=== PATIENT | female | born 1980 | race Caucasian/White ===

== ENCOUNTER 2017-06-07 13:46 | Emergency (ER) | payer MEDICAID, SELFPAY ==
[2017-06-07 14:05] VITALS: BP 152/94; PULSE 112; RESP 20; TEMP 36.6; O2SAT 100
--- NOTE | 2017-06-07 14:33 | HMH.EDUTC ---
[facility] [place] Impression: Viral gastroenteritis Disposition: Home, Self-Care Condition on Discharge: Good Instructions: Viral Gastroenteritis, DI for Viral Gastroenteritis -- Adult, Loperamide, Diarrhea Additional Instructions: ? Drink extra fluids with and between meals. If you have difficulty drinking, try very small amounts of water or suck on ice chips. ? Avoid fruit juices, as these do not replace minerals and can actually increase diarrhea. ? Children and adults can use sports drinks to replenish electrolytes. Younger children and infants should use products formulated for children, like oral rehydration solutions. ? Eat food in small amounts and let your stomach recover. ? Get lots of rest. You may feel tired or weak. ? Check with your doctor before taking medications or giving them to children. Never give aspirin to children or teenagers with a viral illness. This can cause Loyd syndrome, a potentially life-threatening condition. Over the counter Immodium for diarrhea If you begin to have any life threatening symptoms or severe abdominal pain straight to ER Follow up with family doctor in 12-48 hours if no improvement or worsening of symptoms Return if needed Prescriptions: Ondansetron [Zofran 4mg ODT] 4 mg PO Q8H #20 tab.rapdis Time of Disposition: 15:12 Medical Decision Making - Medical Records Medical records reviewed: Yes: I reviewed the patient's medical records. Vital Signs: 06/07/17 14:05 Temperature 97.8 F Temperature Source Temporal Artery Scan Pulse Rate [Right Brachial] 112 H Respiratory Rate 20 Blood Pressure [Right Arm] 152/94 Blood Pressure Mean [Right Arm] 113 Blood Pressure Source [Right Arm] Automatic Cuff Blood Pressure Position [Right Arm] Sitting 02 Sat by Pulse Oximetry 100 Oxygen Delivery Method Room Air - Lab Data Lab results reviewed: Yes: I reviewed the patient's lab results. Lab Results 06/07/17 14:15: Influenza Type A Ag Negative, Influenza Type B Ag Negative, Strep Scn Rapid Clinic Negative Orders (Tests/Meds): ED MEDICATIONS Discontinued Medications Generic Name Dose Route Start Last Admin Trade Name Freq PRN Reason Stop Dose Admin Dicyclomine HCl 10 mg 06/07/17 14:38 06/07/17 14:45 Bentyl 10mg Capsule PO 06/07/17 14:39 10 mg ONCE ONE Administration Ondansetron HCl 4 mg 06/07/17 14:38 06/07/17 14:45 Zofran 4mg Odt SL 06/07/17 14:39 4 mg ONCE ONE Administration ORDERS Category Date Time Status Strep Screen Confirmation Stat Micro 06/07/17 14:15 Received - Christiano Inquiry Pt receiving controlled substance: No Christiano was queried for this patient: No - Reevaluation(s) Time: 15:08 Reevaluation #1: Patient state that Bentyl helped with cramping and feels much better [facility] [place] - General Stated complaint: Stomach pain; diarhea; bloating Mode of Arrival: Family Vehicle Source of Information: Patient Limitations: No Limitations Description of Symptoms (Recalled from Triage Doc. by RN): C/O N/V/D SINCE THIS AM WITH EPIGASTRIC PAIN HEENT Symptoms (Recalled from RN notes): No Resp Symptoms (Recalled from RN notes): No Skin Symptoms (Recalled from RN notes): No MS Symptoms (Recalled from RN notes): No Functional Status (Recalled from RN notes): N/A - History of Present Illness Provider Complaint: Patient state that she began having nausea, vomiting and diarrhea yesterday States that right before she has an eppisode of loose stool she has some stomach cramping. State that this morning she woke up and still having diarrhea, vomiting and stomach cramps so she came in to get checked out - Related Data Previous Rx's Medication Instructions Recorded Ondansetron [Zofran 4mg ODT] 4 mg PO Q8H #20 tab.rapdis 06/07/17 Allergies Allergy/AdvReac Type Severity Reaction Status Date / Time NKDA Allergy Unknown Uncoded 03/18/17 15:31 - Worker's Comp Is this a Worker's Comp case?: No [facility]
--- NOTE | 2017-06-07 14:38 | ED_ITS ---
[facility] [place]ression: Viral gastroenteritis Disposition: Home, Self-Care Condition on Discharge: Good Instructions: Viral Gastroenteritis, DI for Viral Gastroenteritis -- Adult, Loperamide, Diarrhea Additional Instructions: ? Drink extra fluids with and between meals. If you have difficulty drinking, try very small amounts of water or suck on ice chips. ? Avoid fruit juices, as these do not replace minerals and can actually increase diarrhea. ? Children and adults can use sports drinks to replenish electrolytes. Younger children and infants should use products formulated for children, like oral rehydration solutions. ? Eat food in small amounts and let your stomach recover. ? Get lots of rest. You may feel tired or weak. ? Check with your doctor before taking medications or giving them to children. Never give aspirin to children or teenagers with a viral illness. This can cause Darian?s syndrome, a potentially life-threatening condition. Over the counter Immodium for diarrhea If you begin to have any life threatening symptoms or severe abdominal pain straight to ER Follow up with family doctor in 12-48 hours if no improvement or worsening of symptoms Return if needed Prescriptions: Ondansetron [Zofran 4mg ODT] 4 mg PO Q8H #20 tab.rapdis Time of Disposition: 15:12 Medical Decision Making - Medical Records Medical records reviewed: Yes: I reviewed the patient's medical records. Vital Signs: 06/07/17 14:05 Temperature 97.8 F Temperature Source Temporal Artery Scan Pulse Rate [Right Brachial] 112 H Respiratory Rate 20 Blood Pressure [Right Arm] 152/94 Blood Pressure Mean [Right Arm] 113 Blood Pressure Source [Right Arm] Automatic Cuff Blood Pressure Position [Right Arm] Sitting 02 Sat by Pulse Oximetry 100 Oxygen Delivery Method Room Air - Lab Data Lab results reviewed: Yes: I reviewed the patient's lab results. Lab Results 06/07/17 14:15: Influenza Type A Ag Negative, Influenza Type B Ag Negative, Strep Scn Rapid Clinic Negative Orders (Tests/Meds): ED MEDICATIONS Discontinued Medications Generic Name Dose Route Start Last Admin Trade Name Freq PRN Reason Stop Dose Admin Dicyclomine HCl 10 mg 06/07/17 14:38 06/07/17 14:45 Bentyl 10mg Capsule PO 06/07/17 14:39 10 mg ONCE ONE Administration Ondansetron HCl 4 mg 06/07/17 14:38 06/07/17 14:45 Zofran 4mg Odt SL 06/07/17 14:39 4 mg ONCE ONE Administration ORDERS Category Date Time Status Strep Screen Confirmation Stat Micro 06/07/17 14:15 Received - Christiano Inquiry Pt receiving controlled substance: No Christiano was queried for this patient: No - Reevaluation(s) Time: 15:08 Reevaluation #1: Patient state that Bentyl helped with cramping and feels much better [facility] [place] - General Stated complaint: Stomach pain; diarhea; bloating Mode of Arrival: Family Vehicle Source of Information: Patient Limitations: No Limitations Description of Symptoms (Recalled from Triage Doc. by RN): C/O N/V/D SINCE THIS AM WITH EPIGASTRIC PAIN HEENT Symptoms (Recalled from RN notes): No Resp Symptoms (Recalled from RN notes): No Skin Symptoms (Recalled from RN notes): No MS Symptoms (Recalled from RN notes): No Functional Status (Recalled from RN notes): N/A - History of Present Illness
[2017-06-07 14:52] LABS: UTC Influenza A Antigen Negative (Negative); UTC Influenza B Antigen Negative (Negative); UTC Strep Screen (Rapid) Negative (Negative)
[2017-06-07 15:19] VITALS: BP 148/88; PULSE 100; RESP 20; TEMP 36.6; O2SAT 100
== END 2017-06-07 15:20 | disposition home or self-care (01) ==
PROVIDERS: Emergency Provider Nurse Practitioner; Family Provider Family Medicine
DX: A08.4 Viral intestinal infection, unspecified (principal); R10.13 Epigastric pain
CPT/HCPCS: 87804; 87880; 99202

== ENCOUNTER → 2018-06-23 11:39 | Outpatient (CLI) | payer MEDICAID, SELFPAY ==
[2018-06-23 12:29] LABS: Basophils % 0.7 % (0.1-2.0); Eosinophils # 0.1 K/mm3 (0.0-0.4); Eosinophils % 1.2 % (0.1-12.0); Hematocrit 30.8 % (37.0-47.0); Hemoglobin 8.8 g/dL (12.2-16.2); Lymphocytes # 1.1 K/mm3 (0.7-4.5); Lymphocytes % 22.7 % (10-50); Mean Corpuscular HGB Conc 28.5 g/dL (31.8-35.4); Mean Corpuscular Volume 66.9 fl (81-99); Mean Platelet Volume 7.1 fl (7.4-10.4); Monocytes # 0.6 K/mm3 (0.1-1.0); Neutrophils # 3.2 K/mm3 (1.8-7.8); Neutrophils % 63.4 % (37.0-80.0); Platelet Count 260 K/mm3 (142-424); Red Blood Count 4.61 M/mm3 (4.20-5.40); Red Cell Distribution Width 17.1 % (11.5-17.5)
[2018-06-24 08:45] LABS: HIV Screen 4th Generation wRfx Non Reactive (Non Reactive); Rubella Antibodies, IgG 7.43 index (Immune >0.99)
[2018-06-24 09:22] LABS: Rapid Plasma Reagin Ab Titer Non Reactive (NonRea<1:1)
[2018-06-24 10:05] LABS: Hepatitis B Surface Antigen Negative (Negative); Hepatitis C Antibody 0.1 s/co ratio (0.0-0.9)
== END ==
PROVIDERS: Visit Provider Nurse Practitioner Obstetrics & Gynecology
DX: Z34.90 Encounter for supervision of normal pregnancy, unspecified, unspecified trimester (principal)
CPT/HCPCS: 36415; 85025; 86592; 86703; 86762; 86850; 87340; 87380; G0432

== ENCOUNTER 2018-06-26 17:59 | Observation (INO) ==
--- NOTE | 2018-06-26 18:53 | Emergency Department Note ---
ED Disposition Clinical Impression: Spontaneous , Vaginal bleeding Disposition: Admitted as Observation Condition on Discharge: Fair Referrals: Provider,Referral, [Primary Care Provider] - Time of Disposition: 20:00 - Critical Care Critical Care Time: No Attestation: On 06/26/18, the high probability of a clinically significant, sudden or life threatening deterioration of the following system(s) required my full and direct attention, intervention and personal management. The time I documented below is in addition to time spent performing reported procedures but includes the following listed in this critical care notation. Medical Decision Making - Medical Records Medical records reviewed: Yes: I reviewed the patient's medical records. - Christiano Inquiry Pt receiving controlled substance: No Christiano was queried for this patient: No Vital Signs: 06/26/18 18:05 Temperature 98.2 F Temperature Source Oral Pulse Rate [Right] 95 H Respiratory Rate 20 Blood Pressure [Right Arm] 130/92 H Blood Pressure Mean [Right Arm] 104 Blood Pressure Source [Right Arm] Automatic Cuff Blood Pressure Position [Right Arm] Sitting 02 Sat by Pulse Oximetry 99 Oxygen Delivery Method Room Air - Lab Data Lab results reviewed: Yes: I reviewed the patient's lab results. Lab Results 06/26/18 17:50: HCG, Quant 7073 H 06/26/18 17:50: WBC 6.0, RBC 4.58, Hgb 8.6 L, Hct 30.5 L, MCV 66.7 L, MCH 18.7 L , MCHC 28.0 L, RDW 17.1, Plt Count 260, MPV 7.8, Neut % (Auto) 71.6, Lymph % (Auto) 18.4, [place] % (Auto) 8.6, Eos % (Auto) 1.0, Baso % (Auto) 0.4, Neut # (Auto) 4.3, Lymph # (Auto) 1.1, [place] # (Auto) 0.5, Eos # (Auto) 0.1, Baso # (Auto) 0.0 Result diagrams: 06/26/18 17:50 Orders (Tests/Meds): ORDERS Category Date Time Status Type and Screen Stat BBK 06/26/18 19:40 Ordered US OB <= 14 weeks fetus Stat Exams 06/26/18 18:37 Ordered - Physician Consults Physician Consulted: mik functional mental disability teacher anna reza Time: 19:58 Comment/Response: admit obs General Adult HPI - General Chief complaint: Vaginal Bleeding Stated complaint: 8 weeks , spotting Time Seen by Provider: 06/26/18 18:50 Mode of Arrival: Ambulatory Source of Information: Patient Limitations: No Limitations Description of Symptoms (Recalled from ER Triage Doc. by RN): 8 weeks with bleeding and cramps for the past hour. Pt had pap smear friday. - History of Present Illness HPI narrative: established with Dr. Reza - Related Data Home Medications Medication Instructions Recorded Confirmed Vit Calc,Iron,Folic [Kpn] 1 tab PO DAILY 06/26/18 ferrous sulfate 324 mg (65 mg 324 mg PO BID 06/26/18 iron) tablet,delayed release Allergies Allergy/AdvReac Type Severity Reaction Status Date / Time NKDA Allergy Unknown Uncoded 06/23/18 10:39 [facility] History - Hepatitis A Screen Drug use history?: No High risk sexual behaviors?: No History of sexually transmitted infection?: No Currently employed?: No Childcare worker?: No Do you have indoor plumbing?: Yes Do you have electricity?: Yes Attestation statement:: This patient has been screened for Hepatitis A risk factors. I have reviewed the patient's past medical history: Yes Medical History: Denies:: Cancer, Diabetes Mellitus Type 1, Diabetes Mellitus Type 2, MRSA Amputation: No - Social History Educational Level: Attended College Alcohol Intake: never Occupational Status: unemployed Housing: apartment Household Members: spouse - Psychiatric History Expresses thoughts of harming self/others: None Suicide Plan Description: No Plan Para: 2 ROS Obtained: Yes All systems reviewed & no additional complaints - Constitutional Constitutional: Denies fever(s) - Cardiovascular Cardiovascular: Denies chest pain at rest, Denies dyspnea - Respiratory Respiratory: Yes system reviewed and no additional complaints, except as docu, No chest congestion, No cough, No dyspnea - Gastrointestinal Gastrointestingal: Reports: system reviewed and no additional complaints, except as docu, abdominal pain - Genitourinary Female Genitourinary: Denies abnormal vaginal bleeding - Musculoskeletal Musculoskeletal: Denies joint swelling, Denies muscle weakness, Denies stiffness - Integumentary/Breasts Skin/Breast: Denies rash - Neurologic Neurologic: Denies headache(s), Denies numbness, Denies syncope Physical Exam - General General appearance: alert, anxious - Head Head exam: atraumatic, normocephalic, normal inspection - Eye Eye exam: Present: normal appearance, PERRL, EOMI - ENT ENT exam: Present: normal exam, normal oropharynx, mucous membranes moist, TM's normal bilaterally, normal external ear exam - Chest Chest inspection: Present: normal inspection, symmetric chest wall rise. Absent: tenderness - Respiratory Respiratory exam: Present: normal lung sounds bilaterally. Absent: respiratory distress - Cardiovascular Cardiovascular exam: Present: regular rate, normal rhythm. Absent: JVD - Abdominal Exam Abdominal exam: Present: soft, tenderness, normal bowel sounds. Absent: distention, guarding Abdominal tenderness: Present: suprapubic - Extremities Exam Extremities exam: Present: normal inspection, full ROM, normal capillary refill. Absent: calf tenderness - Back Exam Back exam: Present: normal inspection. Absent: tenderness - Neurological Exam Neurological exam: Present: alert, oriented X3
[2018-06-26 19:06] LABS: Basophils % 0.4 % (0.1-2.0); Eosinophils # 0.1 K/mm3 (0.0-0.4); Hematocrit 30.5 % (37.0-47.0); Hemoglobin 8.6 g/dL (12.2-16.2); Lymphocytes # 1.1 K/mm3 (0.7-4.5); Lymphocytes % 18.4 % (10-50); Mean Corpuscular Hemoglobin 18.7 pg (27.0-31.2); Mean Corpuscular Volume 66.7 fl (81-99); Mean Platelet Volume 7.8 fl (7.4-10.4); Monocytes # 0.5 K/mm3 (0.1-1.0); Monocytes % 8.6 % (1.7-9.3); Neutrophils # 4.3 K/mm3 (1.8-7.8); Neutrophils % 71.6 % (37.0-80.0); Platelet Count 260 K/mm3 (142-424); Red Blood Count 4.58 M/mm3 (4.20-5.40); Red Cell Distribution Width 17.1 % (11.5-17.5)
[2018-06-26 22:16] LABS: Hematocrit 27.1 % (37.0-47.0); Hemoglobin 7.7 g/dL (12.2-16.2)
[2018-06-27 09:21] LABS: Hematocrit 25.6 % (37.0-47.0)
[2018-06-27 09:23] LABS: Hemoglobin 7.3 g/dL (12.2-16.2)
--- NOTE | 2018-06-27 14:09 | History & Physical Report ---
OB - H&P: HPI Antepartum - History of Present Illness Chief complaint: heavy vaginal bleeding History of present illness: 38 yo @ 8+ wks by LMP presented to ED on 06/26/18 with report of heavy vaginal bleeding and cramping. She had established care with Dr. Patel at [facility] and had 1 visit, with viable IUP confirmed via ultrasound. Significant baseline anemia was noted when she had labs drawn, with Hgb 8.8 and no known etiology. The patient reported that she has been anemic all of her life, but has not seen a fan mail clerk. She also reported that menstrual periods are usually normal/light amount of flow, making menstrual blood loss an unlikely etiology fo r this severe anemia. She is unaware of family history/ethnicity and has not been evaluated for blood dyscrasias or other medical/genetic conditions. She is also reluctant to f/u with a fan mail clerk, because she reports that other physicians she has seen for regular medical care have continued to prescribe her anti-psychotic medications, and she does not want to take these meds. She has been advised by other providers to take FeSO4 supplementation but refuses to comply with this recommendation because she reports that it turns her skin yellow. On the evening of 06/27/18, she began having severe pelvic cramping and heavy vaginal bleeding with large clots. Upon presentation to the ED, her Hgb was noted to be 8.6 and OB ultrasound was performed to assess status: FINDINGS: There is an irregular intrauterine gestational sac. No pole or yolk sac evident. There is some internal debris. The uterus is 10 x 5 x 5 cm. There is a 14 mm area of decreased echogenicity along the anterior aspect of the uterus suggesting a small fibroid. Even though her Hgb was stable from the one drawn with labs 3 days earlier, her bleeding in the ED and during ultrasound was significant enough that she was admitted for observation and serial labs. Blood type is O+. Other significant history includes 2 full term pregnancies delivered by C Section, 4 SAB, tobacco abuse, anxiety/depression, and advanced maternal age. UDS at first visit was negative for all substances. She additionally reports that she was diagnosed with neurofibromatosis type 1 as an infant, but that other providers she has seen as an adult have advised her that they do not believe this diagnosis was accurate. - History of Present Criteria for establishing EDC:: LMP confirmed by 1st trimester US care: other (1 visit (appropriate for current GA)) Ultrasounds: normal 1st trimester US Abnormal ultrasound findings: current ultrasound (during admission) shows no IUP Obstetrical complications: other (recurrent ) - Labs Blood type: O (+) positive [facility] History I have reviewed the patient's past medical history: Yes Medical History: Reports:: Anxiety, Depression Denies:: Cancer, Diabetes Mellitus Type 1, Diabetes Mellitus Type 2, MRSA *Have you ever received a pneumonia vaccine?: No *Have you received a flu vaccine this season?: No Amputation: No - *Social History Educational Level: Completed High School Smoking Status: Former smoker Alcohol Intake: never *Occupational Status:: unemployed Housing: apartment Household Members: spouse *Travel in the last 8 weeks: None - Psychiatric History Expresses thoughts of harming self/others: None Suicide Plan Description: No Plan Family Hx:: Other (patient unaware of FH) Para: 2 Review of Systems - Review of Systems CONSTITUTIONAL: no fever/chills HEENT: no oral lesions PULMONARY: no shortness of breath or difficulty breathing CV: no racing heart, palpitations or chest pain ABD: no abdominal pain, N/V : moderate vaginal bleeding and pelvic cramping SKIN: no new rash or skin lesions EXT: no edema NEURO: no headache PSYCH: + moderate anxiety - *Neurologic Denies headache(s), Denies numbness, Denies fainting Meds Home Medications Medication Instructions Recorded Confirmed Type Vit Calc,Iron,Folic [Kpn] 1 tab PO DAILY 06/26/18 06/27/18 History ferrous sulfate 324 mg (65 mg 324 mg PO BID 06/26/18 06/27/18 History iron) tablet,delayed release Allergies Allergy/AdvReac Type Severity Reaction Status Date / Time No Known Drug Allergies Allergy Unknown Verified 06/26/18 21:58 allergy reaction OB - H&P: Exam - Physical Exam Vital signs: Temp Pulse Resp BP Pulse Ox 98.3 F 97 H 16 123/76 100 06/27/18 08:03 06/27/18 08:03 06/27/18 08:03 06/27/18 08:03 06/27/18 08:56 Narrative: CONSTITUTIONAL: no acute distress HEENT: mucous membranes moist PULMONARY: breathing unlabored without audible wheezes CV: no tachycardia or visible JVD; normal LE peripheral pulses ABD: soft, NT/ND, no guarding : per ED note SKIN: no visible rash or lesions HEME: no lymphadenopathy EXT: no edema LEs NEURO: alert/oriented PSYCH: appropriate mood and demeanor with intermittent anxiety OB - Results - Labs Labs: Short CBC 06/26/18 06/26/18 06/27/18 Range/Units 17:50 22:01 09:10 WBC 6.0 (4.8-10.8) K/mm3 Hgb 8.6 L 7.7 L* 7.3 L* (12.2-16.2) g/dL Hct 30.5 L 27.1 L 25.6 L (37.0-47.0) % Plt Count 260 (142-424) K/mm3 OB - A/P Antepartum (1) Vaginal bleeding Current visit: Yes Status: Acute (2) Spontaneous in first trimester Current visit: Yes Status: Acute (3) History of recurrent , currently Current visit: Yes Status: Acute (4) Anemia complicating Current visit: Yes Status: Acute (5) AMA (advanced maternal age) multigravida 35+ Current visit: Yes Status: Acute (6) Tobacco smoking complicating Current visit: Yes Status: Acute (7) Anxiety and depression Current visit: Yes Status: Acute (8) History of Current visit: Yes Status: Acute - Additional Plan Additional Information:: Admission for 23 hour observation IVF hydration, serial labs Will treat with methergine 0.2mg IM q 6 x 3-4 doses during observation Type and screen obtained Minimal change in Hgb at this point, and baseline severe anemia, so she is asymptomatic at this time and likely will not require blood transfusion IM/PO toradol for uterine cramping Patient refuses FeSO4 supplementation
--- NOTE | 2018-06-27 14:29 | Discharge Summary ---
General - General Admission date:: 06/26/18 Discharge date: 06/27/18 HPI HPI: 38 yo admitted for observation with SAB 8+ wks Having heavy vaginal bleeding and moderate pain with cramping; admitted for IVF, serial labs and possible transfusion and/or surgical management if needed. Treated with IM methergine for bleeding and IV toradol for pain, with appropriate decrease in both bleeding and pain. Hgb remained stable from initial presentation in ED: 8.6, with drop to 7.7 later that evening and 7.3 the following morning. It was noted that her baseline Hgb obtained during labs 3 days before the onset of vaginal bleeding was 8.8 She is asymptomatic with her anemia and has no clinical findings; she declined blood transfusion, which was reasonable and/or appropriate in the context of her baseline status She is discharged on 06/27/18 with f/u [address] Patel's office. She was advised to take FeSO4 BID but notes that she will not do this because of previous reactions to this supplement. She was also advised that she should have f/u with a fuel cell repairer regarding her chronic anemia, and she will consider this. She is aware of the increased risk of SAB with both AMA and tobacco abuse, and all questions were answered to her satisfaction at the time of discharge. Hospital Course Hospital Course: see documentation under HPI Objective Vital signs: Temp Pulse Resp BP Pulse Ox 98.3 F 97 H 16 123/76 100 06/27/18 08:03 06/27/18 08:03 06/27/18 08:03 06/27/18 08:03 06/27/18 08:56 Narrative: CONSTITUTIONAL: no acute distress HEENT: mucous membranes moist PULMONARY: breathing unlabored without audible wheezes CV: no tachycardia or visible JVD; normal LE peripheral pulses ABD: soft, NT/ND, no guarding : declined SKIN: no visible rash or lesions EXT: no edema LEs NEURO: alert/oriented PSYCH: appropriate mood and demeanor with intermittent anxiety Results Labs on day of discharge: Labs from last 24 hours 06/27/18 06/26/18 06/26/18 09:10 22:01 19:45 WBC RBC Hgb 7.3 L* 7.7 L* Hct 25.6 L 27.1 L MCV MCH MCHC RDW Plt Count MPV Neut % (Auto) Lymph % (Auto) [place] % (Auto) Eos % (Auto) Baso % (Auto) Neut # (Auto) Lymph # (Auto) [place] # (Auto) Eos # (Auto) Baso # (Auto) HCG, Quant Blood Type O Positive Antibody Screen Negative 06/26/18 06/26/18 17:50 17:50 WBC 6.0 RBC 4.58 Hgb 8.6 L Hct 30.5 L MCV 66.7 L MCH 18.7 L MCHC 28.0 L RDW 17.1 Plt Count 260 MPV 7.8 Neut % (Auto) 71.6 Lymph % (Auto) 18.4 [place] % (Auto) 8.6 Eos % (Auto) 1.0 Baso % (Auto) 0.4 Neut # (Auto) 4.3 Lymph # (Auto) 1.1 [place] # (Auto) 0.5 Eos # (Auto) 0.1 Baso # (Auto) 0.0 HCG, Quant 7073 H Blood Type Antibody Screen DS: Diagnosis - Discharge Diagnosis (1) Vaginal bleeding Status: Acute (2) Spontaneous in first trimester Status: Acute (3) History of recurrent , currently Status: Acute (4) Anemia complicating Status: Acute (5) AMA (advanced maternal age) multigravida 35+ Status: Acute (6) Tobacco smoking complicating Status: Acute (7) Anxiety and depression Status: Acute (8) History of Status: Acute Discharge Plan - Patient Discharge Instructions ACTIVITY: Continue current activity DIET: regular diet Additional Instructions: No heavy lifting or strenuous activity of 2 weeks. Patient Instructions: DI for Miscarriage - Follow up Plan Disposition: Home, Self-Group Home Medications: Home Medications Medication Instructions Recorded Confirmed Type Vit Calc,Iron,Folic [Kpn] 1 tab PO DAILY 06/26/18 06/27/18 History ferrous sulfate 324 mg (65 mg 324 mg PO BID 06/26/18 06/27/18 History iron) tablet,delayed release Ibuprofen [Ibuprofen 800mg 800 mg PO Q8HP PRN #30 tab 06/27/18 Rx Tablet] Prescriptions/Medication Reconciliation: New Ibuprofen [Ibuprofen 800mg Tablet] 800 mg PO Q8HP PRN #30 tab PRN Reason: Moderate Pain Continue Vit Calc,Iron,Folic [Kpn] 1 tab PO DAILY No Action ferrous sulfate 324 mg (65 mg iron) tablet,delayed release 324 mg PO BID
== END 2018-06-27 14:48 | disposition home or self-care (01) ==
LOC: OB 17:59 → ER 17:59 → OB 20:29
PROVIDERS: ADMIT Obstetrics & Gynecology; ATTEND Obstetrics & Gynecology
CPT/HCPCS: 36415; 76801; 84702; 85014; 85018; 85025; 86850; 96365; 99284; G0378

== ENCOUNTER 2020-12-12 17:51 | Emergency (ER) | payer MEDICAID, SELFPAY ==
--- NOTE | 2020-12-12 18:53 | XR_ITS ---
PROCEDURE INFORMATION: Exam: XR Sacrum and Coccyx, 2 or More Views Exam date and time: 12/12/20 06:53 PM Age: 40 years old Clinical indication: Pain in coccyx area; Additional info: Fall pain 2 weeks ago TECHNIQUE: Imaging protocol: XR of the sacrum and coccyx, 2 or more views. COMPARISON: CR XR LUMBAR SPINE 2-3V 12/12/20 06:54 PM FINDINGS: Bones/joints: Normal. No acute fracture. Soft tissues: Normal. IMPRESSION: No acute findings.
--- NOTE | 2020-12-12 18:53 | XR_ITS ---
PROCEDURE INFORMATION: Exam: XR Lumbosacral Spine Exam date and time: 12/12/20 06:53 PM Age: 40 years old Clinical indication: Low back pain; Additional info: Fall pain 2 weeks ago TECHNIQUE: Imaging protocol: XR of the lumbosacral spine. Views: 2 or 3 views. COMPARISON: OB<14WKS US OB <= 14 weeks fetus 06/26/18 07:03 PM FINDINGS: Bones/joints: Normal. No acute fracture. Normal alignment. Soft tissues: Unremarkable. IMPRESSION: No acute findings.
[2020-12-12 19:00] VITALS: BP 142/92; PULSE 100; RESP 20; TEMP 37; O2SAT 100; BMI 32.0
--- NOTE | 2020-12-12 19:55 | HMH.EDUTC ---
[facility] Disposition Clinical Impression: Low back pain Qualifiers: Chronicity: acute Back pain laterality: unspecified Sciatica presence: without sciatica Qualified Code(s): M54.5 - Low back pain Fall Qualifiers: Encounter type: initial encounter Qualified Code(s): W19.XXXA - Unspecified fall, initial encounter Disposition: Home, Self-Care Condition on Discharge: Good Instructions: Coccyx Fracture, DI for Coccyx Fracture Additional Instructions: Take ibuprofen for pain. I sent in a prescription to your pharmacy. Follow up with Dr. Peterson if you continue to have issues. I put in a referral but you need to call his office and schedule an appointment. Follow up with your regular doctor. GO TO THE ER FOR ANY WORSENING SYMPTOMS Prescriptions: Ibuprofen [Ibuprofen 800mg Tablet] 800 mg PO Q8HP PRN #30 tab PRN Reason: Moderate Pain Transmission Status: Received by [facility] Referrals: Provider,Arely, [Primary Care Provider] - Glenroy Peterson MD [Staff Physician] - Time of Disposition: 20:02 Medical Decision Making - Medical Records Medical records reviewed: No: I reviewed the patient's medical records. - Christiano Inquiry Pt receiving controlled substance: No Vital Signs: 12/12/20 19:00 12/12/20 20:06 Temperature 98.6 F 98.6 F Temperature Source Oral Pulse Rate 100 H Pulse Rate [Right Brachial] 100 H Respiratory Rate 20 20 Blood Pressure 142/92 H Blood Pressure [Right Arm] 142/92 H Blood Pressure Mean [Right Arm] 108 Blood Pressure Source [Right Arm] Automatic Cuff Blood Pressure Position [Right Arm] Sitting 02 Sat by Pulse Oximetry 100 Oxygen Delivery Method Room Air - Radiology Data #1 Image(s): L-Spine Image Reviewed: Yes I reviewed the patient's radiology image, Yes I have reviewed radiologist's interpretation Preliminary Findings: No Fracture Seen [facility] HPI - General Stated complaint: AO 11/27/20 fall, tailbone and back pain Time Seen by Provider: 12/12/20 19:55 Mode of Arrival: Ambulatory Source of Information: Patient Limitations: No Limitations Description of Symptoms (Recalled from Triage Doc. by RN): PATIENT STATES SHE FELL APPROX 2 WEEKS AGO. C/O PAIN TO LOWER BACK AND COCCYX AREA HEENT Symptoms (Recalled from RN notes): No Resp Symptoms (Recalled from RN notes): No Skin Symptoms (Recalled from RN notes): No MS Symptoms (Recalled from RN notes): Yes Functional Status (Recalled from RN notes): WNL - History of Present Illness Provider Complaint: She c/o low back pain and coccyx pain after falling around 10 days ago. She fell going down some steps and landed on her bottom. - Related Data Previous Rx's Medication Instructions Recorded Ibuprofen [Ibuprofen 800mg 800 mg PO Q8HP PRN #30 tab 12/12/20 Tablet] Allergies Allergy/AdvReac Type Severity Reaction Status Date / Time No Known Drug Allergies Allergy Unknown Verified 07/21/18 13:31 allergy reaction - Worker's Comp Is this a Worker's Comp case?: No [facility] History - Hepatitis A Screen Drug use history?: No High risk sexual behaviors?: No History of sexually transmitted infection?: No Currently employed?: No Childcare worker?: No Do you have indoor plumbing?: Yes Do you have electricity?: Yes Attestation statement:: This patient has been screened for Hepatitis A risk factors. I have reviewed the patient's past medical history: Yes Medical History: Reports:: Anxiety, Depression Denies:: Cancer, Diabetes Mellitus Type 1, Diabetes Mellitus Type 2, MRSA Comment: PTSD Other Surgeries: Yes: Amputation: No Fractures: No - Social History Smoking Status: Former smoker Alcohol Intake: never Substance Use Type: denies use Occupational Status: unemployed Housing: apartment Household Members: spouse - Psychiatric History Pschychiatric History:: Reports:: Anxiety, Depression Family Hx:: Other EAR SPECIALIST history: Spontaneous , Postpa
[2020-12-12 20:06] VITALS: BP 142/92; PULSE 100; RESP 20; TEMP 37; O2SAT 100
== END 2020-12-12 20:12 | disposition home or self-care (01) ==
PROVIDERS: Emergency Provider Nurse Practitioner Family
DX: M54.5 Low back pain (principal); W10.9XXA Fall (on) (from) unspecified stairs and steps, initial encounter; Y92.019 Unspecified place in single-family (private) house as the place of occurrence of the external cause; F41.8 Other specified anxiety disorders; Z87.891 Personal history of nicotine dependence
CPT/HCPCS: 72100; 72220; 99202; G0463